=== PATIENT | male | born 1975 | race Hispanic/Latino ===

== ENCOUNTER 2019-06-15 08:05 | Outpatient (CLI) | payer OTHER ==
--- NOTE | 2019-06-15 12:38 | MRI ---
MRI RIGHT KNEE PERFORMED WITHOUT CONTRAST ENHANCEMENT: Date: 06/15/2019 HISTORY: Right knee pain after hearing a pop when putting foot down. FINDINGS: The anterior, as well as posterior cruciate ligaments are intact. The medial and lateral menisci are normal in shape and appearance. Medial and lateral collateral ligaments, and iliotibial band regions are normal. Patellar articular cartilage is intact. The medial and lateral patellar retinaculum, and quadriceps a nd patellar tendons are normal. There is very minimal patellar tendinosis noted. There are diffuse edema changes associated with the plantaris muscle and what appears to be a plantar is tendon tear. IMPRESSION: 1. No evidence of meniscal or cruciate ligament injury. 2. Edema change associated with the plantaris muscle and edema changes and tear of the plantaris ten don. POS: [facility]
== END 2019-06-15 08:06 | disposition home or self-care (01) ==
LOC: BICMRI 08:05
PROVIDERS: ATTEND Orthopaedic Surgery
DX: M23.91 Unspecified internal derangement of right knee (principal)

== ENCOUNTER 2020-05-22 08:51 | Observation (INO) | payer OTHER ==
[2020-05-22 10:20] VITALS: BMI 32.1
[2020-05-22] MEDS ORDERED: Ondansetron ODT 4 MG TAB PO PRN (10:54)
[2020-05-22] MEDS ORDERED: Acetaminophen 325 MG TAB PO PRN (10:54)
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
[2020-05-22] MEDS ORDERED: Fentanyl 100 MCG/2 ML VIAL SLOW IVP SCH (11:00)
[2020-05-22] MEDS: Gabapentin 300 MG CAP PO SCH ×3 (12:39→23:48)
[2020-05-22 13:25] LABS: Anion Gap 17 mmol/L (10-20); BUN (Urea Nitrogen) 13 mg/dL (8.9-20.6); Calc. Creatinine Clearance 252 mL/min (70-130); Calcium 8.5 mg/dL (7.8-10.44); Carbon Dioxide 22 mmol/L (22-29); Chloride 101 mmol/L (98-107); Glucose 107 mg/dL (70-105); Potassium 3.7 mmol/L (3.5-5.1); Sodium 136 mmol/L (136-145)
[2020-05-22 13:42] LABS: SARS-CoV-2 MS2 Positive; SARS-CoV-2 N Gene Negative; SARS-CoV-2 S Gene Negative; SARS-CoV-2 by NAA Not Detected (NotDetected); SARS-CoV-2 orf1ab Negative
[2020-05-22] MEDS ORDERED: Lidocaine 5% Patch TD SCH (14:00)
[2020-05-22] MEDS ORDERED: Dextrose 5% in Water 1,000 ML IV PRN (14:32)
[2020-05-22] MEDS ORDERED: Dextrose 50% Abboject 50 ML SYRINGE SLOW IVP PRN (14:32)
[2020-05-22] MEDS: Ketorolac Tromethamine 30 MG/ML VIAL IVP SCH ×3 (14:44→23:49)
[2020-05-22] MEDS ORDERED: Diazepam 5 MG TAB PO SCH (14:45)
[2020-05-22 15:46] LABS: #Basophils 0.1 thou/uL (0.0-0.2); #Eosinphils 0.1 thou/uL (0.0-0.7); #Monocytes 0.7 thou/uL (0.11-0.59); #Neutrophils 4.9 thou/uL (1.40-6.50); %Basophils 1.2 % (0.0-1.0); %Eosinophils 0.9 % (0.0-10.0); %Lymphocytes 33.8 % (21.0-51.0); %Monocytes 8.4 % (0.0-10.0); %Neutrophils 55.7 % (42.0-75.0); Hemoglobin 16.6 g/dL (14.0-18.0); Mean Corpuscular HGB CONC 34.1 g/dL (32.0-36.0); Mean Corpuscular Hemoglobin 31.8 pg (27.0-31.0); Mean Corpuscular Volume 93.5 fL (78.0-98.0); Mean Platelet Volume 8.1 fL (7.4-10.4); Platelet Count 275 thou/uL (130-400); RBC Distribution Width 11.5 % (11.5-14.5); Red Blood Cell (RBC) Count 5.22 mill/uL (4.70-6.10); White Blood Cell (WBC) Count 8.8 thou/uL (4.8-10.8)
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
--- NOTE | 2020-05-22 16:18 | MRI ---
EXAM: MRI Pelvis WO Con DATE: 05/22/2020 3:51 PM INDICATION: History of right SI joint injection one week ago with right sided low back pain radiatin g into the right leg and foot COMPARISON: None. FINDING: No abnormal fluid signal intensity seen within the SI joints. The subchondral bone plate is intact. No abnormal marrow signal intensity is seen involving the sacrum. The coccyx appears within normal limits. No free fluid is evident. No enlarged lymph nodes are demonstrated. IMPRESSION:No acute abnormality.
[2020-05-22 16:20] LABS: Hemoglobin A1c 9.2 % (4.0-6.0)
[2020-05-22] MEDS ORDERED: Melatonin 3 MG TAB PO PRN (17:25)
[2020-05-22] MEDS: metFORMIN 500 MG TAB PO SCH (17:43)
[2020-05-22] MEDS ORDERED: Ketorolac Tromethamine 30 MG/ML VIAL ONE (18:45)
[2020-05-22] MEDS: HYDROcodone/Acetaminophen 10/325 mg Tablet PO PRN (18:47)
[2020-05-22] MEDS: Methocarbamol 500 MG TAB PO SCH (20:30)
[2020-05-22] MEDS ORDERED: Atorvastatin Calcium 20 MG TAB PO SCH (21:00)
[2020-05-22] MEDS ORDERED: Lidocaine Patch Removal 1 EACH TOP SCH (21:00)
[2020-05-23] MEDS: HYDROcodone/Acetaminophen 10/325 mg Tablet PO PRN ×3 (04:45→17:53)
[2020-05-23] MEDS: Ketorolac Tromethamine 30 MG/ML VIAL IVP SCH ×2 (04:45→12:45)
[2020-05-23] MEDS: Gabapentin 300 MG CAP PO SCH ×2 (04:46→12:44)
--- NOTE | 2020-05-23 07:04 | PDOC.FM ---
- Subjective Subjective: Reports left lower back pain is significantly improved since yesterday. Continued numbness and tingling down left leg but no weakness. Denies left inner thigh numbness, urinary incontinence and fecal incontinence. - Objective MAR Reviewed: Yes Vital Signs & Weight: Vital Signs (12 hours) Temp Pulse Resp BP BP Pulse Ox 05/23/20 03:43 98.6 F 76 18 141/77 H 98 05/22/20 23:54 98.5 F 72 16 137/73 94 L 05/22/20 21:00 98.3 F 74 18 140/75 95 05/22/20 20:00 98.3 F 74 18 140/75 95 Weight Weight 113.398 kg I&O: 05/22/20 05/23/20 05/24/20 06:59 06:59 06:59 Intake Total 1480 Output Total 1500 Balance -20 Result Diagrams: 05/22/20 15:25 05/22/20 12:34 Phys Exam - Physical Examination Constitutional: NAD HEENT: moist MMs, sclera anicteric Neck: full ROM Respiratory: no wheezing, clear to auscultation bilateral Cardiovascular: RRR, no significant murmur Gastrointestinal: soft, non-tender, positive bowel sounds Musculoskeletal: no edema Left paraspinal muscular tenderness, left hip tenderness Neurological: non-focal, normal sensation, moves all 4 limbs Patellar reflex 2+ Psychiatric: normal affect, A&O x 3 Skin: no rash Dx/Plan - Plan Plan: Patient is a 44 year old male with hx of HTN, DM, HLD who was directly admitted from Dr. Darden (sports med) office for intractable pain Intractable pain 2/2 herniated disk of lumbar spine Lumbosacral radiculopathy S/p injury in 03/29/20. Treated with back brace x [address] Corbett (orthopedics). Uncontrolled pain on regimen: norco 5 Q6H, diclofenace 75mg BID, gabapentin 300mg BID. Failure L SI injection on 05/15/19. Unable to obtain MRI outpatient to r/o spinal cord compression due to pain/movement. -Admit to medicine obs -s/p fentanyl 50 with brief improvement of pain -Continue norco 10 Q6H PRN -Lidocaine 5% patch -Heating pain -Continue predisone 60mg daily started at PCP office -Continue gabapentin 600mg Q6H -Toradol 15mg Q6H -Robaxin 500mg BID -Anesthesia consulted, undergoing epidural with steroid injection this am -MRI: degenerative changes, disc bulge at L4-5, mild bilateral neural foraminal narrowing at L4-5 and L5-S1 HTN -Continue home meds HLD -Continue home med DM A1C 9.2 -Continue home meds -Mild SSI, accu checks -Will need close f/u with PCP to adjust medication regimen PCP: Dr. Darden Code: FULL DVT ppx: Lovenox 40 Dispo: Home pending adequate pain control Addendum - Attending - Attending Attestation Date/Time: 05/23/20 1121 I personally evaluated the patient and discussed the management with Dr. Lainez. I agree with the History, Examination, Assessment and Plan documented above with any addition or exceptions noted below.
[2020-05-23] MEDS ORDERED: predniSONE 20 MG TAB PO SCH ×2 (08:00)
[2020-05-23] MEDS ORDERED: Aspirin 81 mg Enteric Coated Tablet PO SCH (09:00)
[2020-05-23] MEDS ORDERED: Losartan 25 MG TAB PO SCH (09:00)
[2020-05-23] MEDS ORDERED: Lidocaine 5% Patch TD SCH (09:00)
[2020-05-23] MEDS ORDERED: Enoxaparin Sodium 40 MG/0.4 ML SYRINGE SC SCH (09:00)
[2020-05-23] MEDS ORDERED: Empagliflozin 25 MG TAB PO SCH (09:00)
[2020-05-23] MEDS: metFORMIN 500 MG TAB PO SCH ×2 (09:33→17:10)
[2020-05-23] MEDS: Methocarbamol 500 MG TAB PO SCH (09:34)
[2020-05-23] MEDS ORDERED: FLU VACC QS2020-21(6MOS UP)/PF 60 MCG/0.5 ML SYRINGE IM ONE (10:45)
[2020-05-23] MEDS ORDERED: Prevnar 13-Val Conj/PF 0.5 ML SYRINGE IM ONE (10:45)
[2020-05-23] MEDS: HumaLOG 300 UNITS/3 ML VIAL SC PRN ×2 (12:46→17:11)
[2020-05-23 12:57] VITALS: TEMP 98.4
[2020-05-23] MEDS ORDERED: Ibuprofen 800 MG TAB PO SCH (17:00)
[2020-05-23] MEDS ORDERED: Methocarbamol 500 MG TAB PO SCH (17:00)
[2020-05-23] MEDS ORDERED: Gabapentin 400 MG CAP PO SCH (17:00)
[2020-05-23 19:34] VITALS: BP 146/89
== END 2020-05-23 18:31 | disposition home or self-care (01) ==
LOC: SURG B 08:51
PROVIDERS: ADMIT Family Medicine; ATTEND Family Medicine
DX: M51.17 Intervertebral disc disorders with radiculopathy, lumbosacral region (principal); I10 Essential (primary) hypertension; E11.9 Type 2 diabetes mellitus without complications; E78.5 Hyperlipidemia, unspecified; Z79.82 Long term (current) use of aspirin; Z79.84 Long term (current) use of oral hypoglycemic drugs; Z79.899 Other long term (current) drug therapy; Z87.891 Personal history of nicotine dependence; Z88.8 Allergy status to other drugs, medicaments and biological substances; Z20.822 Contact with and (suspected) exposure to COVID-19
CPT/HCPCS: 36415; 36416; 72148; 72195; 80048; 83036; 85025; 87635; 96372; 96374; 96375; 96376; G0378; J1650; J1885; J3010; J7512; U0003; U0005

== ENCOUNTER 2020-05-29 12:59 | Emergency (ER) | payer OTHER ==
[2020-05-29] MEDS ORDERED: Ketorolac Tromethamine 30 MG/ML VIAL ONE ×2 (14:04→14:05)
--- NOTE | 2020-05-29 14:04 | CT ---
Exam: CT lumbar spine without contrast HISTORY: Intractable back pain. Disc herniation. Patient has undergone epidural steroid injection. Comparison none FINDINGS: No abnormal attenuation the visualized solid organs, paraspinal muscles or alimentary canal. Sacroiliac joints are patent and symmetric. Sacral ala are preserved. There is trabecular thickening, cortical thickening, bony expansion associated with a sclerotic focus involving the left iliac bone, compatible with Paget's disease. There are no pathologic fractures and the visualized bony pelv is Lumbar spine vertebral body heights are maintained. There is no lumbar spine fracture. There is a rig ht pars defect at L5 without associated spondylolisthesis. There is straightening of normal lumbar lordosis Limited evaluation the contents of the central spinal canal and neural foramina due to technique Throughout the lumbar spine, there is no significant central canal stenosis. There is mass effect upo n the ventral epidural fat at L4-L5. Disc material contacts but does not obscure either traversing L5 nerve root. There is a broad-based disc bulge at L5-S1. Disc material contacts the ventral epidura l fat. Disc material contacts without obscure either traversing S1 nerve root. Mild bilateral neural foraminal narrowing at L4-L5. Mild to moderate bilateral neural foraminal narrowing at L5-S1. IMPRESSION: 1. No lumbar spine fracture. 2. Spondylolysis at L5-S1, involving the right pars. No associated spondylolisthesis. 3. No significant central canal stenosis. Bilateral neural foraminal narrowing at L4-L5 and L5-S1 as described above. Transcribed Date/Time: 05/29/2020 2:12 PM
[2020-05-29 14:32] LABS: #Basophils 0.1 thou/uL (0.0-0.2); #Eosinphils 0.1 thou/uL (0.0-0.7); #Lymphocytes 2.4 thou/uL (1.20-3.40); #Monocytes 0.8 thou/uL (0.11-0.59); #Neutrophils 7.2 thou/uL (1.40-6.50); %Basophils 0.6 % (0.0-1.0); %Eosinophils 0.7 % (0.0-10.0); %Lymphocytes 22.7 % (21.0-51.0); Hemoglobin 18.4 g/dL (14.0-18.0); Mean Corpuscular HGB CONC 33.8 g/dL (32.0-36.0); Mean Corpuscular Hemoglobin 31.6 pg (27.0-31.0); Mean Corpuscular Volume 93.5 fL (78.0-98.0); Mean Platelet Volume 7.9 fL (7.4-10.4); Platelet Count 259 thou/uL (130-400); RBC Distribution Width 11.8 % (11.5-14.5); Red Blood Cell (RBC) Count 5.81 mill/uL (4.70-6.10); White Blood Cell (WBC) Count 10.5 thou/uL (4.8-10.8)
[2020-05-29 14:49] LABS: ALT (SGPT) 37 U/L (8-55); AST (SGOT) 19 U/L (5-34); Albumin 4.3 g/dL (3.5-5.0); Alkaline Phosphatase 91 U/L (40-110); Anion Gap 16 mmol/L (10-20); BUN (Urea Nitrogen) 13 mg/dL (8.9-20.6); Bilirubin, Total 0.6 mg/dL (0.2-1.2); Calc. Creatinine Clearance 0 mL/min (70-130); Calcium 8.5 mg/dL (7.8-10.44); Carbon Dioxide 20 mmol/L (22-29); Chloride 106 mmol/L (98-107); Globulin 2.6 g/dL (2.4-3.5); Glucose 149 mg/dL (70-105); Protein, Total 6.9 g/dL (6.0-8.3); Sodium 138 mmol/L (136-145)
== END 2020-05-29 15:20 | disposition home or self-care (01) ==
LOC: ERS 12:59
DX: M54.5 Low back pain (principal); Z79.899 Other long term (current) drug therapy; Z79.84 Long term (current) use of oral hypoglycemic drugs; Z79.82 Long term (current) use of aspirin; E11.9 Type 2 diabetes mellitus without complications; E78.5 Hyperlipidemia, unspecified; E78.00 Pure hypercholesterolemia, unspecified; I10 Essential (primary) hypertension
CPT/HCPCS: 36415; 72131; 80053; 85025; 85652; 86140; J1885

== ENCOUNTER 2020-06-03 17:41 | Inpatient (IN) | payer OTHER ==
[~2020-06-03 17:41] MED LIST: Iopamidol-370 76% 500 ML 1 ML ONE
[2020-06-03] MEDS ORDERED: Ondansetron PF 4 MG/2 ML Vial ONE (18:03)
[2020-06-03 18:52] LABS: ALT (SGPT) 52 U/L (8-55); AST (SGOT) 36 U/L (5-34); Albumin 4.4 g/dL (3.5-5.0); Alkaline Phosphatase 103 U/L (40-110); BUN (Urea Nitrogen) 33 mg/dL (8.9-20.6); Bilirubin, Total 0.6 mg/dL (0.2-1.2); Calc. Creatinine Clearance 0 mL/min (70-130); Calcium 9.4 mg/dL (7.8-10.44); Carbon Dioxide Less than 8 mmol/L (22-29); Chloride 92 mmol/L (98-107); Glucose 608 mg/dL (70-105); Magnesium 3.1 mg/dL (1.6-2.6); Phosphorus 9.9 mg/dL (2.3-4.7); Potassium 4.7 mmol/L (3.5-5.1); Protein, Total 8.4 g/dL (6.0-8.3); Sodium 129 mmol/L (136-145)
[2020-06-03] MEDS ORDERED: Ketorolac Tromethamine 30 MG/ML VIAL ONE (19:04)
[2020-06-03] MEDS ORDERED: Morphine 4 MG/ML VIAL ONE ×2 (19:04→19:19)
[2020-06-03 19:18] LABS: Analyzer IN Cardio ER; Base Excess -29.1 mEq/L (-2.0 to +3.0); Calcium, Ionized (venous) 1.28 mmol/L (1.16-1.32); Chloride (VBG) 93 mmol/L (98-106); Hemoglobin (Hb) 20.4 g/dL (13.1-17.2); Potassium (VBG) 4.43 mmol/L (3.70-5.30); Sodium 131.9 mmol/L (133-146)
[2020-06-03 19:30] LABS: Hemoglobin 17.3 g/dL (14.0-18.0); Mean Corpuscular HGB CONC 33.1 g/dL (32.0-36.0); Mean Corpuscular Volume 96.7 fL (78.0-98.0); Mean Platelet Volume 8.5 fL (7.4-10.4); Platelet Count 309 thou/uL (130-400); RBC Distribution Width 11.8 % (11.5-14.5); Red Blood Cell (RBC) Count 5.39 mill/uL (4.70-6.10); White Blood Cell (WBC) Count 27.6 thou/uL (4.8-10.8)
[2020-06-03 19:39] LABS: Actual Bicarbonate (HCO3v) 5 mEq/L (22-28); pH (venous) 6.83 (7.32-7.43)
[2020-06-03] MEDS ORDERED: INSULIN REGULAR IN 0.9 % NACL 100 UNIT/100 ML BAG ONE (19:39)
[2020-06-03 19:42] LABS: Band 11 % (5-11); MDiff Complete? YES; Metamyelocyte 1 % (0-0); Monocytes 10 % (0-10); Neutrophil 78 % (42-75); Platelet Morphology Comment Appears Adequate; RBC Morphology Normal
[2020-06-03] MEDS ORDERED: Piperacillin/Tazobactam 4.5 GM VIAL ONE (20:32)
[2020-06-03] MEDS ORDERED: Vancomycin 1 GM/200 ML BAG ONE (20:32)
--- NOTE | 2020-06-03 21:01 | RAD ---
PORTABLE CHEST: History: Sepsis FINDINGS: Lungs show no focal infiltrate or consolidation. No significant effusion. Heart and mediastinum unrem arkable. IMPRESSION: No acute process identified. POS: [facility]
[2020-06-03 21:22] LABS: Lactic Acid 3.3 mmol/L (0.5-2.2)
[2020-06-03 22:03] LABS: Bacteria/HPF None Seen HPF (None Seen); Bilirubin Negative (Negative); Blood, Urine 1+ (Negative); Clarity Clear (Clear); Glucose, Urine (Dipstick) Greater than 1000 mg/dL (Negative); Ketone, Urine 100 mg/dL (Negative); Leukocyte Negative Leu/uL (Negative); Mucous/LPF Rare LPF (<2+); Nitrite Negative (Negative); Protein, Urine (Dipstick) 30 mg/dL (Neg-Trace); RBC/HPF 0-3 HPF (0-3); Specific Gravity, Urine 1.022 (1.002-1.036); Squamous Epithelial None Seen HPF (0-3); Urobilinogen Normal mg/dL (Less than 2); WBC/HPF 0-3 HPF (0-3); pH, Urine 5.5 (5.0-9.0)
[2020-06-03] MEDS ORDERED: Ondansetron PF 4 MG/2 ML Vial IVP PRN (23:02)
[2020-06-03] MEDS ORDERED: Guaifenesin DM 100-10/5 ML UDCUP PO PRN (23:02)
[2020-06-03] MEDS ORDERED: Acetaminophen 325 MG TAB PO PRN (23:02)
[2020-06-03] MEDS ORDERED: Promethazine HCl 12.5 MG in Sodium Chloride 0.9% 50 ML IVPB PRN (23:02)
[2020-06-03] MEDS ORDERED: hydrALAZINE 20 MG/ML VIAL SLOW IVP PRN (23:02)
[2020-06-03] MEDS ORDERED: Labetalol HCl 100 MG/20 ML VIAL SLOW IVP PRN (23:02)
[2020-06-03] MEDS ORDERED: cloNIDine 0.1 MG TAB PO PRN (23:02)
[2020-06-03] MEDS ORDERED: Dextrose 5 %-0.45 % NaCl 1,000 ML IV PRN (23:04)
[2020-06-03] MEDS ORDERED: Sodium Chloride 0.9% 1,000 ML IV PRN ×4 (23:04)
[2020-06-03] MEDS ORDERED: Electrolyte Replacement Protocol 1 EACH IVPB ONE (23:04)
[2020-06-03] MEDS ORDERED: NS 0.9% w/ 20 MEQ KCL 1,000 ML IV PRN ×2 (23:04)
--- NOTE | 2020-06-03 23:08 | PDOC.HHP ---
Hospitalist HPI - History of Present Illness Weakness History of Present Illness: Patient is a 45 year old male with PMH bulging disc in back, diabetes, Type II, hyperlipidemia, hypertension who presents to ED for vomiting, weakness, dizziness, hyperglycemia. He has recently been having epidural injections in back, last one was 2 weeks ago for DJD, no isses with site and no problems in weeks after injection, he has recent diabetes medication change. He took a day of steroids but has not been on prolonged steroid therapy. In ED, WBC 27, plt 309, lactate 8->3, co2 less than 8, po4 9.9, glucose 400, na 129, ua w/o UTI, vitals w/ hypothermia, tachycardia, hypotension, tachypnea. Labs overall concerning for DKA and possible sepsis. Hospitalist ROS - Review of Systems Constitutional: reports: chills, weakness, malaise Eyes: denies: pain, vision change, conjunctivae inflammation, eyelid inflammation, redness, other ENT: denies: ear pain, ear discharge, nose pain, nose discharge, nose congestion, mouth pain, mouth swelling, throat pain, throat swelling, other Respiratory: denies: cough, dry, shortness of breath, hemoptysis, SOB with excertion, pleuritic pain, sputum, wheezing, other Cardiovascular: denies: chest pain, palpitations, orthopnea, paroxysmal noc. dyspnea, edema, light headedness, other Gastrointestinal: reports: nausea, vomiting. denies: abdominal pain, diarrhea, constipation, melena, hematochezia, other Genitourinary: denies: dysuria, frequency, incontinence, hematuria, retention, other Musculoskeletal: denies: neck pain, shoulder pain, arm pain, back pain, hand pain, leg pain, foot pain, other Skin: denies: rash, lesions, tatiana, bruising, other Neurological: denies: weakness, numbness, incoordination, change in speech, confusion, seizures, other All other systems reviewed; all pertinent +/- noted in HPI/Subj - Medication Medications: Ozempic pen injector : Strength - 0.25 mg or 0.5 mg dose (2 mg/1.5 mL) : [1.5 mL(s)] : SUBCUTANEOUS Patient Dose: UNK mg Subcutaneous once a week. metFORMIN tablet : Strength - 1,000 mg : ORAL Patient Dose: UNK mg Oral once a day. Jardiance tablet : Strength - 10 mg : ORAL Patient Dose: UNK mg Oral once a day. simvastatin tablet : Strength - 20 mg : ORAL Patient Dose: UNK mg Oral once a day. olmesartan tablet : Strength - 20 mg : ORAL Patient Dose: 20 mg Oral once a day. Aspir-81 tablet,delayed release (DR/EC) : Strength - 81 mg : ORAL Patient Dose: 81 mg Oral once a day. pantoprazole oral tablet,delayed release (DR/EC) : Strength - 20 mg : ORAL Patient Dose: 40 mg Oral once a day. gabapentin capsule : Strength - 300 mg : ORAL Patient Dose: 300 mg Oral 2 times a day. methocarbamol oral tablet : Strength - 500 mg : ORAL Patient Dose: 500 mg Oral 2 times a day. Miralax 17 gram/dose : Strength - powder : ORAL Patient Dose: 1 units Oral 2 times a day. Hospitalist History - Past Medical History Other Medical History: Past medical history includes musculoskeletal disorder, bulging disc in back, diabetes, Type II, hyperlipidemia, hypertension - Past Surgical History Other Surgical History: Surgical history of orthopedic surgery, LEFT SHOULDER, LEFT LEG AND BROKEN JAW REPAIR (8 YRS OLD), LEFT ELBOW SURGERY AT AGE 8. - Family History Family History: reports: no pertinent history - Social History Smoking Status: Former smoker Alcohol: reports: Rare Drugs: reports: none - Exam General Appearance: NAD, awake alert Eye: PERRL, anicteric sclera ENT: normocephalic atraumatic, no oropharyngeal lesions, moist mucosa Neck: supple, symmetric, no JVD, no thyromegaly, no lymphadenopathy, no carotid bruit Heart: no murmur, no gallops, no rubs, normal peripheral pulses Heart - other findings: tachycardia Respiratory: CTAB, no wheezes, no rales, no ronchi, normal chest expansion, no tachypnea, normal percussion Gastrointestinal: soft, non-tender, non-distended, normal bowel sounds, no palpable masses, no hepatomegaly, no splenomegaly, no bruit Extremities: no cyanosis, no clubbing, no edema Skin: normal turgor, no lesions, no rashes Neurological: cranial nerve grossly intact, normal sensation to touch, no weakne ss, no focal deficits, no new deficit Musculoskeletal: normal tone, normal strength, no muscle wasting Psychiatric: normal affect, normal behavior, A&O x 3 Hospitalist Results - Labs Result Diagrams: 06/03/20 19:15 06/03/20 17:58 Lab results: WBC 27.6 thou/uL (4.8-10.8) H 06/03/20 19:15 Hgb 17.3 g/dL (14.0-18.0) 06/03/20 19:15 Hct 52.1 % (42.0-52.0) H 06/03/20 19:15 MCV 96.7 fL (78.0-98.0) 06/03/20 19:15 Plt Count 309 thou/uL (130-400) 06/03/20 19:15 Band Neuts % (Manual) 11 % (5-11) 06/03/20 19:15 VBG pH 6.83 (7.32-7.43) L* 06/03/20 18:37 VBG pCO2 31.0 mmHg (42.0-51.0) L 06/03/20 18:37 VBG pO2 35.8 mmHg (35.0-45.0) 06/03/20 18:37 Sodium 129 mmol/L (136-145) L 06/03/20 17:58 Potassium 4.7 mmol/L (3.5-5.1) 06/03/20 17:58 Chloride 92 mmol/L (98-107) L 06/03/20 17:58 Carbon Dioxide Less than 8 mmol/L (22-29) L* 06/03/20 17:58 BUN 33 mg/dL (8.9-20.6) H 06/03/20 17:58 Creatinine 2.15 mg/dL (0.7-1.3) H 06/03/20 17:58 Glucose 608 mg/dL (70-105) H* 06/03/20 17:58 Lactic Acid 3.3 mmol/L (0.5-2.2) H 06/03/20 20:51 Calcium 9.4 mg/dL (7.8-10.44) 06/03/20 17:58 Total Bilirubin 0.6 mg/dL (0.2-1.2) 06/03/20 17:58 AST 36 U/L (5-34) H 06/03/20 17:58 ALT 52 U/L (8-55) 06/03/20 17:58 Alkaline Phosphatase 103 U/L (40-110) 06/03/20 17:58 Troponin I 0.014 ng/mL (< 0.028) 06/03/20 17:58 Serum Total Protein 8.4 g/dL (6.0-8.3) H 06/03/20 17:58 Albumin 4.4 g/dL (3.5-5.0) 06/03/20 17:58 Urine Ketones 100 mg/dL (Negative) A 06/03/20 21:10 Urine Blood 1+ (Negative) A 06/03/20 21:10 Urine Nitrite Negative (Negative) 06/03/20 21:10 Ur Leukocyte Esterase Negative Padma/uL (Negative) 06/03/20 21:10 Urine RBC 0-3 HPF (0-3) 06/03/20 21:10 Urine WBC 0-3 HPF (0-3) 06/03/20 21:10 Ur Squamous Epith Cells None Seen HPF (0-3) 06/03/20 21:10 Urine Bacteria None Seen HPF (None Seen) 06/03/20 21:10 Additional comment: VITAL SIGNS WedJun 03, 2020 22:18 BOWEN De Santiago, Padma BP: 110/62 Pulse: 116 Resp: 27 O2 sat: 100 on (Room Air) Time: 06/03/2020 22:18. Hospitalist H&P A/P - Plan Plan: 45 year old male with PMH T2DM, chronic disk herniation and pain who presents to ED for DKA. # DKA # severe sepsis # hypothermia # acute kidney injury # hyponatremia - admit to IMCU - DKA protocol, insulin drip - empiric ABX - not long enough on steroids to need stress dosing now - consult critical care meds - trend electrolytes - CT A/P, consider MRI back if sepsis persists given recent epidural 2 weeks ago. not clinically really suspecting epidural infection though, but something to keep in mind DVT/GI ppx full code
[2020-06-03] MEDS ORDERED: HUMULIN R 100 UNITS in Sodium Chloride 0.9% 100 ML IVPB SCH (23:15)
[2020-06-03] MEDS ORDERED: Electrolyte Replacement Protocol 1 EACH FS PRN (23:15)
[2020-06-03] MEDS ORDERED: Hydrocortisone Sod Succ/PF 100 mg/2 ml Vial IVP SCH (23:30)
[2020-06-03 23:38] LABS: BUN (Urea Nitrogen) 34 mg/dL (8.9-20.6); Calc. Creatinine Clearance 0 mL/min (70-130); Calcium 8.1 mg/dL (7.8-10.44); Chloride 96 mmol/L (98-107); Glucose 520 mg/dL (70-105); Potassium 4.1 mmol/L (3.5-5.1); Sodium 127 mmol/L (136-145)
[2020-06-03 23:40] LABS: Carbon Dioxide Less than 8 mmol/L (22-29)
[2020-06-04 00:43] VITALS: BMI 31.0
[2020-06-04 01:03] LABS: SARS-CoV-2 NAA Rapid Test Not Detected (NotDetected)
[2020-06-04] MEDS: HYDROcodone/Acetaminophen 5/325 mg Tablet PO PRN (01:41)
[2020-06-04] MEDS: Morphine 2 MG/ML VIAL SLOW IVP PRN ×2 (02:36→13:08)
[2020-06-04] MEDS: Piperacillin/Tazobactam 3.375 GM in Sodium Chloride 0.9% 100 ML IVPB SCH ×4 (03:44→21:05)
[2020-06-04 03:58] LABS: #Lymphocytes 1.5 thou/uL (1.20-3.40); #Monocytes 1.7 thou/uL (0.11-0.59); #Neutrophils 13.6 thou/uL (1.40-6.50); %Basophils 0.2 % (0.0-1.0); %Eosinophils 0.3 % (0.0-10.0); %Lymphocytes 8.8 % (21.0-51.0); %Monocytes 10.1 % (0.0-10.0); %Neutrophils 80.6 % (42.0-75.0); Hemoglobin 15.8 g/dL (14.0-18.0); Mean Corpuscular HGB CONC 36.2 g/dL (32.0-36.0); Mean Corpuscular Hemoglobin 32.9 pg (27.0-31.0); Mean Corpuscular Volume 90.9 fL (78.0-98.0); Mean Platelet Volume 8.3 fL (7.4-10.4); Platelet Count 253 thou/uL (130-400); RBC Distribution Width 11.6 % (11.5-14.5); Red Blood Cell (RBC) Count 4.79 mill/uL (4.70-6.10); White Blood Cell (WBC) Count 16.9 thou/uL (4.8-10.8)
[2020-06-04] MEDS: D5 1/2 NS w/20 mEq KCL 1,000 ML IV PRN ×3 (03:59→11:39)
[2020-06-04 04:17] LABS: Anion Gap 16 mmol/L (10-20); BUN (Urea Nitrogen) 27 mg/dL (8.9-20.6); BUN (Urea Nitrogen) 28 mg/dL (8.9-20.6); Calc. Creatinine Clearance 137 mL/min (70-130); Calc. Creatinine Clearance 138 mL/min (70-130); Calcium 8.1 mg/dL (7.8-10.44); Carbon Dioxide 12 mmol/L (22-29); Chloride 105 mmol/L (98-107); Glucose 134 mg/dL (70-105); Glucose 135 mg/dL (70-105); Potassium 3.7 mmol/L (3.5-5.1); Potassium 3.8 mmol/L (3.5-5.1); Sodium 129 mmol/L (136-145)
[2020-06-04] MEDS ORDERED: Hydrocortisone Sod Succ/PF 100 mg/2 ml Vial IVP SCH (06:00)
[2020-06-04] MEDS ORDERED: VANCOMYCIN 1.25 GM/250 ML BAG 1.25 GM in Premix Bag 1 BAG IVPB SCH (06:00)
[2020-06-04] MEDS: traMADol HCl 50 MG TAB PO PRN ×2 (06:12→17:15)
[2020-06-04] MEDS ORDERED: Magnesium 2 GM/50 ML 2 GM in Premix Bag 1 BAG IVPB SCH (06:30)
[2020-06-04] MEDS: Aspirin 81 mg Enteric Coated Tablet PO SCH (07:52)
[2020-06-04] MEDS: Gabapentin 300 MG CAP PO SCH ×3 (07:53→21:03)
[2020-06-04 08:26] LABS: Anion Gap 13 mmol/L (10-20); BUN (Urea Nitrogen) 19 mg/dL (8.9-20.6); Calc. Creatinine Clearance 164 mL/min (70-130); Carbon Dioxide 14 mmol/L (22-29); Chloride 106 mmol/L (98-107); Glucose 177 mg/dL (70-105); Potassium 3.7 mmol/L (3.5-5.1); Sodium 129 mmol/L (136-145)
--- NOTE | 2020-06-04 08:28 | CT ---
PRELIMINARY REPORT/[facility]/EMERGENCY AFTER HOURS PROCEDURE CT abdomen and pelvis with contrast: Comparison: None Findings: No significant abnormality in the lung bases. Cholelithiasis. No cholecystitis or biliary obstruction. No hydronephrosis or symptomatic urinary calculus. Diffuse fatty infiltration of the liver. Wall thickening of the distal esophagus. No bowel obstruction, free fluid, free air, abscess or diverticulitis. Normal appendix. The reproductive organs and urinary bladder are unremarkable. Sclerosis and mild expansion of the left posterior iliac wing. Impression: Possible mild distal esophagitis which may be infectious, inflammatory or malignant. No other acute a bnormality or definite cause for symptoms identified. Sclerosis and expansion of the posterior left iliac wing. No surrounding Survey reaction or soft tissue mass. This may be fibrous dysplasia. Bone scan could be considered to evaluate for any risk of malignancy. ELECTRONICALLY SIGNED BY: Jef Gutiérrez MD Jun 04, 2020 2:48:12 AM SAND WORKER This report is intended for review by the ordering physician only, in accordance of law. If you recei ve this report in error, please call [facility] at [phone]. FINAL REPORT Emergent after hours CT abdomen and pelvis with IV contrast HISTORY: Diabetic ketoacidosis with critical life-threatening pH. Tachycardia and tachypnea. Hypother amy. COMPARISON: MRI pelvis on 05/22/2020 IMPRESSION: 1. Thickening of the visualized distal esophagus. This could be infectious or inflammatory in etiolog y. Neoplastic process cannot be excluded. Direct visualization may be helpful for further evaluation. 2. Mild fatty infiltration liver. 3. Approximately 10 mm increased density exophytic lesion inferior pole right kidney which is difficu lt to further characterize on this exam due to small size. Follow-up CT exam with and without IV contrast is recommended for further attempt at characterization. This finding was discussed with Kaleb perez, CCU nurse in charge of patient's hospital care on 06/04/2020 at 0826 hours. 4. Sclerotic lesion involving the left iliac bone with cortical thickening and trabecular thickening and mild expansion of the ileum in this region. This corresponds with abnormality seen on MRI of the pelvis on 05/22/2020 with differential considerations suggestive of Paget's disease or possibly fi bro-osseous lesion such as focal fibrous dysplasia. Please see MRI report for recommendations which were made on that examination. Agree with preliminary report by [facility]. Transcribed Date/Time: 06/04/2020 10:51 AM
[2020-06-04] MEDS ORDERED: Famotidine 20 MG TAB PO SCH ×2 (09:00)
--- NOTE | 2020-06-04 10:36 | CON ---
DATE OF CONSULTATION: HISTORY OF PRESENT ILLNESS: Eric Newman is a 45-year-old diabetic gentleman who apparently appears stop taking his medication. He is having some intractable back pain, nausea, and vomiting. He came into the hospital with severe metabolic acidosis, elevated blood sugar, heart rate of 125. He is seeing some back physician for chronic back pain. He had a CT of his abdomen which shows what appears to be evidence of a disk problem. This morning, he is awake, responsive, still complaining of pain, slightly nauseated. He denies any tobacco abuse. PAST MEDICAL HISTORY: Uncontrolled diabetes, chronic pain syndrome. PREVIOUS SURGERIES: Left shoulder surgery, elbow surgery, jaw surgery. SOCIAL HISTORY: Drinks occasionally. Quit smoking 10 years ago. HOME MEDICATIONS: Presumably includes: 1. Zofran. 2. Pamelor 25. 3. Ibuprofen. 4. Hydrocodone. 5. Gabapentin. 6. Ozempic. 7. Benicar 20. 8. Aspirin. 9. Metformin 1000 b.i.d. 10. Simvastatin 40. 11. Jardiance 25. He is now on insulin drip. ALLERGIES: LISINOPRIL. REVIEW OF SYSTEMS: Ten-point negative. PHYSICAL EXAMINATION: GENERAL: He is awake, alert, responsive. VITAL SIGNS: Sats are 90% on room air. Blood pressure 102/70, pulse rate 18. CHEST: No wheezing. No crackles. CARDIAC: Normal S1, S2. No masses. LABORATORY DATA: Pertinent for sodium of 129, bicarb of 14, white count of 16,000. Chest x-ray was normal. 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 IMPRESSION: 1. Chronic back syndrome. 2. Uncontrolled diabetes. PLAN: Pulmonary vásquez, we will follow while in the ICU. He is on insulin drip. Once his acidosis improves, switch him over to home medication. Consultation note, 70 minutes, 50% in direct patient care. Job ID: [id number]
[2020-06-04] MEDS: VANCOMYCIN 1.25 GM/250 ML BAG 1.25 GM in Premix Bag 1 BAG IVPB SCH ×2 (11:37→21:50)
[2020-06-04] MEDS: Lidocaine 5% Patch TD SCH (11:38)
[2020-06-04] MEDS: HYDROcodone/Acetaminophen 10/325 mg Tablet PO PRN ×2 (11:38→19:44)
--- NOTE | 2020-06-04 12:41 | PDOC.FM ---
- Subjective Subjective: Pt is complaining of left leg pain that is shooting in nature. He says his pain is an 8/10 and gabapentin helps. He had a epidural on 05/24 and had 24 hours of relief. He had an MRI earlier this month that showed a spot in the ileum concerning for paget's disease and an L5-S1 disc herniation. He had a nerve study on 06/03 that showed some axonal slowing more consistent with neuropathy from DM. He does not check his blood sugars at home. He says his A1C was 9.5% last month. He started Ozempic 2 Sundays ago, but he has been on the other medications for awhile. He was on Nortryptline but discontinued it due to dizziness. Discussed case with Dr. Darden who is working up his paget's disease. He has ordered a bone scan and urine hydroxyproline and discussed possibly getting it while he is here. - Objective MAR Reviewed: Yes Vital Signs & Weight: Vital Signs (12 hours) Temp Pulse Pulse Pulse BP BP BP 06/04/20 09:11 107 H 104 H 103 H 96/70 102/65 123/72 06/04/20 09:00 97.7 F 06/04/20 08:55 108 H 100 96/70 123/72 06/04/20 07:17 06/04/20 04:00 98.1 F Pulse Ox Pulse Ox Pulse Ox Pulse Ox 06/04/20 09:11 97 98 98 06/04/20 09:00 06/04/20 08:55 98 93 L 06/04/20 07:17 98 06/04/20 04:00 Weight Weight 106.6 kg Most Recent Monitor Data Heart Rate from ECG 94 NIBP 109/71 NIBP BP-Mean 83 Respiration from ECG 11 SpO2 99 I&O: 06/03/20 06/04/20 06/05/20 06:59 06:59 06:59 Intake Total 1784.3 500 Output Total 2049 2500 Balance -265.7 -1999 Result Diagrams: 06/04/20 03:31 06/04/20 07:37 Phys Exam - Physical Examination pt is uncomfortable HEENT: moist MMs Neck: no nodes Respiratory: no wheezing, clear to auscultation bilateral Cardiovascular: RRR, no significant murmur Gastrointestinal: soft, non-tender, positive bowel sounds Musculoskeletal: no edema, pulses present Neurological: normal sensation, moves all 4 limbs Lymphatic: no nodes Psychiatric: normal affect Skin: normal turgor Deviation from normal: tinea versicolor on back Dx/Plan (1) DKA (diabetic ketoacidoses) Code(s): E11.10 - TYPE 2 DIABETES MELLITUS WITH KETOACIDOSIS WITHOUT COMA Status: Acute (2) Sepsis Code(s): A41.9 - SEPSIS, UNSPECIFIED ORGANISM Status: Acute (3) SVETLANA (acute kidney injury) Code(s): N17.9 - ACUTE KIDNEY FAILURE, UNSPECIFIED Status: Acute (4) Diabetes mellitus Code(s): E11.9 - TYPE 2 DIABETES MELLITUS WITHOUT COMPLICATIONS Status: Acute (5) HTN (hypertension) Code(s): I10 - ESSENTIAL (PRIMARY) HYPERTENSION Status: Acute (6) HLD (hyperlipidemia) Code(s): E78.5 - HYPERLIPIDEMIA, UNSPECIFIED Status: Acute (7) DJD (degenerative joint disease) Code(s): M19.90 - UNSPECIFIED OSTEOARTHRITIS, UNSPECIFIED SITE Status: Acute (8) Bulging disc Code(s): TES4358 - Status: Acute - Plan Plan: Pt is a 45 yo M with pmh of DMII, HTN, HLD, DJD, and hx of bulging disc disease who presents for weakness. 1. DKA BHB: 0.12 -Pt already on protocol with fluids, insulin, and electrolytes protocol as needed -Will transition to subq insulin soon 2. Sepsis LA: 8 > 3, WBC: 27 > 16 -Meds: Vanc, Zosyn -Will await blood cultures -Will trend labs 3. SVETLANA, Resolved Cre: 2.15 > 0.86 4. DMII Home Meds: Metformin, Empagliflozin, Semaglutide -ACHS insulin checks, SSI 5. HTN Home Meds: Olmesartan 6. HLD Home Meds: Simvastatin 7. DJD -MD aware 8. Hx of Bulging Disc Home Meds: Gabapentin, Nortriptyline 9. Concern for Paget's Disease MRI showed a spot on L iliac, which was reiterated on CT -Alk phos and calcium normal -Will get Vit D today -Consider getting urine hydroxyproline and Bone Scan if able 10. R Renal Mass 10 mm exophytic lesion found on CT, recommended repeat CT w/ & w/o contrast Diet: NPO, will transition after subq insulin administered DVT PPx: Lovenox GI PPx: Protonix Code Status: Full PCP: Dr. Shayy Edwards Endo: Dr. Gardner Sports Med: Dr. Darden Dispo: ICU inpt will transfer to floor today if stable. Addendum - Attending - Attending Attestation Date/Time: 06/04/20 3743 I personally evaluated the patient and discussed the management with Dr. Fragoso. I agree with the History, Examination, Assessment and Plan documented above with any addition or exceptions noted below. Admitted to hospitalist group overnight and transferred to our service today. was well into the DKA protocol at the time of my exam and AG was closing. Concern for compliance with DM medications at home. GBS positive UTI. Multiple recent steroid injections/bust doses. All of these likely contributed to his recurrent DKA. Continue DKA protocol until anion gap is closed then transition to home subcutaneous insulin.we will attempt to continue evaluation for Paget's disease of the bone if insurance will allow bone scan. Evaluating for additional infectious sources. Pro-calcitonin pending.
[2020-06-04 15:27] LABS: Lactic Acid 0.8 mmol/L (0.5-2.2)
[2020-06-04] MEDS ORDERED: Dextrose 50% Abboject 50 ML SYRINGE SLOW IVP PRN (17:04)
[2020-06-04] MEDS ORDERED: HumaLOG 300 UNITS/3 ML VIAL SC PRN ×2 (17:04)
[2020-06-04] MEDS ORDERED: Dextrose 5% in Water 1,000 ML IV PRN (17:04)
[2020-06-04] MEDS ORDERED: Insulin Glargine 10 UNITS in Pre-Filled Syringe 1 EACH SC SCH (17:15)
[2020-06-04] MEDS ORDERED: HumaLOG 300 UNITS/3 ML VIAL SC SCH (17:15)
[2020-06-04] MEDS: Atorvastatin Calcium 20 MG TAB PO SCH (21:04)
[2020-06-04] MEDS: Enoxaparin Sodium 40 MG/0.4 ML SYRINGE SC SCH (21:05)
[2020-06-04] MEDS: Transdermal Patch Removal TOP SCH (21:07)
[2020-06-05] MEDS: HYDROcodone/Acetaminophen 5/325 mg Tablet PO PRN (00:29)
[2020-06-05] MEDS: Piperacillin/Tazobactam 3.375 GM in Sodium Chloride 0.9% 100 ML IVPB SCH ×2 (03:55→09:13)
[2020-06-05 04:36] LABS: #Basophils 0.1 thou/uL (0.0-0.2); #Lymphocytes 1.8 thou/uL (1.20-3.40); #Neutrophils 6.1 thou/uL (1.40-6.50); %Basophils 0.7 % (0.0-1.0); %Eosinophils 0.3 % (0.0-10.0); %Lymphocytes 20.4 % (21.0-51.0); %Monocytes 10.6 % (0.0-10.0); Hemoglobin 14.2 g/dL (14.0-18.0); Mean Corpuscular HGB CONC 35.2 g/dL (32.0-36.0); Mean Corpuscular Hemoglobin 32.1 pg (27.0-31.0); Mean Corpuscular Volume 91.4 fL (78.0-98.0); Mean Platelet Volume 8.3 fL (7.4-10.4); Platelet Count 210 thou/uL (130-400); RBC Distribution Width 11.6 % (11.5-14.5); Red Blood Cell (RBC) Count 4.42 mill/uL (4.70-6.10)
[2020-06-05 04:50] LABS: Anion Gap 14 mmol/L (10-20); BUN (Urea Nitrogen) 8 mg/dL (8.9-20.6); Calc. Creatinine Clearance 223 mL/min (70-130); Calcium 8.3 mg/dL (7.8-10.44); Carbon Dioxide 21 mmol/L (22-29); Chloride 105 mmol/L (98-107); Glucose 120 mg/dL (70-105); Potassium 3.2 mmol/L (3.5-5.1); Sodium 137 mmol/L (136-145)
[2020-06-05] MEDS: HYDROcodone/Acetaminophen 10/325 mg Tablet PO PRN (05:57)
[2020-06-05] MEDS ORDERED: Magnesium 2 GM/50 ML 2 GM in Premix Bag 1 BAG IVPB SCH (06:15)
--- NOTE | 2020-06-05 06:25 | PDOC.FM ---
- Subjective Subjective: Complaining of severe, radiating back pain this morning. Consistent with chronic back pain that he experiences. - Objective MAR Reviewed: Yes Vital Signs & Weight: Vital Signs (12 hours) Pulse Ox 06/04/20 19:53 98 Weight Weight 106.6 kg Most Recent Monitor Data Heart Rate from ECG 102 NIBP 130/78 NIBP BP-Mean 95 Respiration from ECG 14 SpO2 98 I&O: 06/03/20 06/04/20 06/05/20 06:59 06:59 06:59 Intake Total 1784.3 3900 Output Total 2050 4600 Balance -265.7 -700 Result Diagrams: 06/05/20 04:12 06/05/20 04:12 Phys Exam - Physical Examination Constitutional: NAD HEENT: PERRLA, moist MMs Neck: no nodes, no JVD, supple Respiratory: no wheezing, no rales, no rhonchi, clear to auscultation bilateral Cardiovascular: RRR, no significant murmur, no rub Gastrointestinal: soft, non-tender, no distention Musculoskeletal: no edema, pulses present Neurological: non-focal, moves all 4 limbs Psychiatric: normal affect, A&O x 3 Skin: no rash, normal turgor Dx/Plan (1) SVETLANA (acute kidney injury) Code(s): N17.9 - ACUTE KIDNEY FAILURE, UNSPECIFIED Status: Acute (2) Bulging disc Code(s): [id number] - Status: Acute (3) DJD (degenerative joint disease) Code(s): M19.90 - UNSPECIFIED OSTEOARTHRITIS, UNSPECIFIED SITE Status: Acute (4) DKA (diabetic ketoacidoses) Code(s): E11.10 - TYPE 2 DIABETES MELLITUS WITH KETOACIDOSIS WITHOUT COMA Status: Acute (5) Diabetes mellitus Code(s): E11.9 - TYPE 2 DIABETES MELLITUS WITHOUT COMPLICATIONS Status: Acute (6) HLD (hyperlipidemia) Code(s): E78.5 - HYPERLIPIDEMIA, UNSPECIFIED Status: Acute (7) HTN (hypertension) Code(s): I10 - ESSENTIAL (PRIMARY) HYPERTENSION Status: Acute (8) Sepsis Code(s): A41.9 - SEPSIS, UNSPECIFIED ORGANISM Status: Acute - Plan Plan: Pt is a 45 yo M with pmh of DMII, HTN, HLD, DJD, and hx of bulging disc disease who presents for weakness. Sepsis w/o clear source, ruled out - He met severe sepsis criteria on admission. - Blood cultures NGTD. - WBC elevation may be due to oral steroid use prior to admission. - Discontinuing antibiotics today, will monitor. DMII Home Meds: Metformin, Empagliflozin, Semaglutide. - Continue insulin for glucose control. Will consider discharging with insulin rather than oral -ACHS insulin checks, SSI HTN Home Meds: Olmesartan HLD Home Meds: Simvastatin DJD -MD aware Hx of Bulging Disc - Home Meds: Gabapentin, Nortriptyline Concern for Paget's Disease MRI showed a spot on L iliac, which was reiterated on CT -Alk phos and calcium normal R Renal Mass - 10 mm exophytic lesion found on CT - repeat CT with and without shows that it is a cyst. - will need outpatient f/u DKA, resolved SVETLANA, Resolved Diet: CC DVT PPx: Lovenox GI PPx: Protonix Code Status: Full PCP: Dr. Shayy Edwards Endo: Dr. Gardner Sports Med: Dr. Darden Dispo: Admitted. Addendum - Attending - Attending Attestation Date/Time: 06/05/20 3730 I personally evaluated the patient and discussed the management with Dr. Elizabeth. I agree with the History, Examination, Assessment and Plan documented above with any addition or exceptions noted below. Patient overall stable, reports continued back pain. In evaluating his labs, he was never in DKA. He had lactic acidosis and hyperglycemia. Control blood sugars. CT shows renal cyst. We are stopping abx given negative cultures, will continue to monitor and hope to discharge tomorrow with outpatient follow up.
[2020-06-05] MEDS ORDERED: Potassium Chloride 20 MEQ TAB PO SCH (06:30)
--- NOTE | 2020-06-05 08:55 | CT ---
CT ABDOMEN AND PELVIS WITH AND WITHOUT IV CONTRAST 06/05/2020 CLINICAL INFORMATION: Renal mass. COMPARISON: 06/04/2020 Technique: Multiple contiguous axial CT images are obtained through the abdomen and pelvis with IV contrast. Cor onal reformatted images are provided. FINDINGS: Lower Chest: Minimal right and trace left pleural effusions are seen with minimal atelectasis right l ej base. Vessels: Minimal atherosclerotic plaque and calcifications in the infrarenal abdominal aorta. Abdomen: Portal vein:Patent Gallbladder: Evidence of cholelithiasis. Mild increased density material is seen in the gallbladder l umen probably due to vicarious excretion of contrast secondary to recent contrasted study one day earlier. Liver: Mild hepatic steatosis is again noted. Spleen: within normal limits. Pancreas: within normal limits. Adrenals: within normal limits. Kidneys: 1.2 cm exophytic increased density lesion is seen in the inferior pole right kidney also see n on prior study. No enhancement is seen on the postcontrast images and this likely represents a Bosniak type II hyperdense renal cyst. No enhancing renal lesion is seen. There is no hydronephrosis or renal calculus. No ureteral calculi are seen. Bowel: Loops of small bowel are normal in caliber. Small amount retained fecal material seen througho ut the colon. Appendix: The appendix is visualized and normal in caliber. Peritoneum: No ascites or free air; no fluid collection. Mesentery and Retroperitoneum: No enlarged mesenteric or retroperitoneal lymph nodes. Abdominal Wall: within normal limits. Pelvis: Reproductive Organs: No pelvic masses. Bladder: within normal limits. Bones: Mild degenerative changes in the lower thoracic spine. The sclerotic lesion involving the left iliac bone with mild cortical thickening and trabecular thickening and associated mild expansion of the left ilium is present. This lesion was previously described on prior study as well as a prior MRI of the pelvis on 05/22/2020. IMPRESSION: 1. Bosniak type II hyperdense renal cyst inferior pole right kidney. No enhancing renal mass is seen. 2. Minimal right and trace left pleural effusions with mild atelectasis right lung base. 3. Sclerotic lesion left iliac bone with differential considerations suggestive of Paget's disease or possibly fibro-osseous lesion such as focal fibrous dysplasia. Further recommendations were made on MRI pelvis, and please see that exam for further details and recommendations. 4. Hepatic steatosis.
[2020-06-05] MEDS: Aspirin 81 mg Enteric Coated Tablet PO SCH (09:00)
[2020-06-05] MEDS: Losartan 25 MG TAB PO SCH (09:03)
[2020-06-05] MEDS: Gabapentin 300 MG CAP PO SCH ×3 (09:03→20:14)
[2020-06-05] MEDS: Lidocaine 5% Patch TD SCH (09:05)
[2020-06-05] MEDS: Insulin Glargine 15 UNITS in Pre-Filled Syringe 1 EACH SC SCH (09:16)
[2020-06-05] MEDS ORDERED: HYDROcodone/Acetaminophen 5/325 mg Tablet PO PRN (09:51)
--- NOTE | 2020-06-05 10:09 | PRG ---
DATE OF SERVICE: 06/05/2020 SUBJECTIVE: Eric Newman was transferred out of the ICU yesterday, uncontrolled diabetes and DKA. He is doing much better. OBJECTIVE: VITAL SIGNS: Temperature 98, pulse 101, respirations 20, saturations are 90% on room air, and blood pressure 130/79. CHEST: No wheezing. No crackles. CARDIAC: Normal S1 and S2. No gallops. ABDOMEN: No masses. LABORATORY DATA: His anion gap is resolved. His bicarb is 21. ASSESSMENT: Diabetic ketoacidosis, improved. PLAN: Pulmonary vásquez, continue present treatment. Diabetic counseling. Pulmonary will follow at a distance. Call if needed. Job ID: [id number]
[2020-06-05 10:15] LABS: Vancomycin, Trough 5.2 ug/mL
[2020-06-05] MEDS: Polyethylene Glycol 3350 17 GM Packet PO SCH (10:21)
[2020-06-05] MEDS ORDERED: Iopamidol-370 76% 500 ML 1 ML ONE (10:25)
[2020-06-05 10:26] LABS: Phosphorus 2.1 mg/dL (2.3-4.7)
[2020-06-05] MEDS ORDERED: traMADol HCl 50 MG TAB PO PRN (10:30)
[2020-06-05] MEDS: HYDROcodone/Acetaminophen 10/325 mg Tablet PO SCH ×2 (12:32→17:40)
[2020-06-05] MEDS: Atorvastatin Calcium 20 MG TAB PO SCH (20:14)
[2020-06-05] MEDS: Enoxaparin Sodium 40 MG/0.4 ML SYRINGE SC SCH (20:15)
[2020-06-05] MEDS: Transdermal Patch Removal TOP SCH (21:46)
[2020-06-06] MEDS: HYDROcodone/Acetaminophen 10/325 mg Tablet PO SCH ×3 (00:54→12:06)
[2020-06-06 04:41] LABS: #Basophils 0.1 thou/uL (0.0-0.2); #Monocytes 0.7 thou/uL (0.11-0.59); #Neutrophils 3.2 thou/uL (1.40-6.50); %Basophils 1.2 % (0.0-1.0); %Eosinophils 0.7 % (0.0-10.0); %Lymphocytes 33.4 % (21.0-51.0); %Neutrophils 52.7 % (42.0-75.0); Hemoglobin 13.8 g/dL (14.0-18.0); Mean Corpuscular HGB CONC 35.1 g/dL (32.0-36.0); Mean Corpuscular Hemoglobin 32.2 pg (27.0-31.0); Mean Corpuscular Volume 91.7 fL (78.0-98.0); Mean Platelet Volume 8.3 fL (7.4-10.4); Platelet Count 219 thou/uL (130-400); RBC Distribution Width 11.6 % (11.5-14.5); Red Blood Cell (RBC) Count 4.29 mill/uL (4.70-6.10); White Blood Cell (WBC) Count 6.1 thou/uL (4.8-10.8)
[2020-06-06 05:06] LABS: Anion Gap 13 mmol/L (10-20); BUN (Urea Nitrogen) 6 mg/dL (8.9-20.6); Calc. Creatinine Clearance 275 mL/min (70-130); Calcium 8.5 mg/dL (7.8-10.44); Carbon Dioxide 27 mmol/L (22-29); Chloride 102 mmol/L (98-107); Glucose 114 mg/dL (70-105); Sodium 139 mmol/L (136-145)
[2020-06-06 05:09] LABS: Potassium 2.8 mmol/L (3.5-5.1)
--- NOTE | 2020-06-06 06:22 | PDOC.FM ---
- Subjective Subjective: Doing well this morning. Back pain is stable. Discussed at length d/c planning and medications. - Objective MAR Reviewed: Yes Vital Signs & Weight: Vital Signs (12 hours) Temp Pulse Resp BP Pulse Ox 06/06/20 04:25 98 F 97 16 120/80 97 06/05/20 20:13 98.9 F 94 18 133/84 97 Weight Weight 106.231 kg Most Recent Monitor Data Heart Rate from ECG 102 NIBP 130/78 NIBP BP-Mean 95 Respiration from ECG 14 SpO2 98 I&O: 06/04/20 06/05/20 06/06/20 06:59 06:59 06:59 Intake Total 1784.3 4370 1400 Output Total 2050 4600 5900 Balance -265.7 -230 -4500 Result Diagrams: 06/06/20 04:11 06/06/20 04:11 Phys Exam - Physical Examination Constitutional: NAD HEENT: PERRLA, moist MMs Neck: no nodes, no JVD, supple Respiratory: no wheezing, no rales, no rhonchi, clear to auscultation bilateral Cardiovascular: RRR, no significant murmur Gastrointestinal: soft, non-tender Musculoskeletal: no edema, pulses present Neurological: non-focal, normal sensation Psychiatric: normal affect, A&O x 3 Skin: no rash, normal turgor Dx/Plan (1) SVETLANA (acute kidney injury) Code(s): N17.9 - ACUTE KIDNEY FAILURE, UNSPECIFIED Status: Acute (2) Bulging disc Code(s): [id number] - Status: Acute (3) DJD (degenerative joint disease) Code(s): M19.90 - UNSPECIFIED OSTEOARTHRITIS, UNSPECIFIED SITE Status: Acute (4) DKA (diabetic ketoacidoses) Code(s): E11.10 - TYPE 2 DIABETES MELLITUS WITH KETOACIDOSIS WITHOUT COMA Status: Acute (5) Diabetes mellitus Code(s): E11.9 - TYPE 2 DIABETES MELLITUS WITHOUT COMPLICATIONS Status: Acute (6) HLD (hyperlipidemia) Code(s): E78.5 - HYPERLIPIDEMIA, UNSPECIFIED Status: Acute (7) HTN (hypertension) Code(s): I10 - ESSENTIAL (PRIMARY) HYPERTENSION Status: Acute (8) Sepsis Code(s): A41.9 - SEPSIS, UNSPECIFIED ORGANISM Status: Acute - Plan Plan: Pt is a 45 yo M with pmh of DMII, HTN, HLD, DJD, and hx of bulging disc disease who presents for weakness. Sepsis w/o clear source, ruled out - He met severe sepsis criteria on admission. - Blood cultures show no growth @ 48 hours. - WBC elevation may be due to oral steroid use prior to admission. - Discontinued antibiotics yesterday, afebrile overnight. Will plan for dispo today with outpatient follow up. DMII Home Meds: Metformin, Empagliflozin, Semaglutide. - Continue insulin for glucose control. Patient is agreeable to d/c with insulin and metformin. 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 HTN Home Meds: Olmesartan HLD Home Meds: Simvastatin DJD -MD aware Hx of Bulging Disc - Home Meds: Gabapentin, Nortriptyline Concern for Paget's Disease MRI showed a spot on L iliac, which was reiterated on CT -Alk phos and calcium normal R Renal Mass - 10 mm exophytic lesion found on CT - repeat CT with and without contrast shows that it is a cyst. - will need outpatient f/u DKA, resolved SVETLANA, Resolved Diet: CC DVT PPx: Lovenox GI PPx: Protonix Code Status: Full PCP: Dr. Shayy Edwards Endo: Dr. Gardner Sports Med: Dr. Darden Dispo: Admitted. Addendum - Attending - Attending Attestation Date/Time: 06/06/20 1039 I personally evaluated the patient and discussed the management with Dr. Elizabeth. I agree with the History, Examination, Assessment and Plan documented above with any addition or exceptions noted below. Patient doing well. Blood sugars stable on current regimen, tolerating diet well. Needs K repletion and recheck. No evidence of infection and stable off abx. Likely discharge later today to continue his workup outpatient.
[2020-06-06] MEDS: Potassium Chloride 20 MEQ in Premix Bag 1 BAG IVPB SCH ×2 (06:28→08:27)
[2020-06-06] MEDS ORDERED: Magnesium 2 GM/50 ML 2 GM in Premix Bag 1 BAG IVPB SCH (06:30)
[2020-06-06] MEDS ORDERED: Potassium Chloride 40 MEQ in Premix Bag 1 BAG IVPB SCH (06:30)
[2020-06-06 08:13] VITALS: TEMP 98.1
[2020-06-06] MEDS: Lidocaine 5% Patch TD SCH (08:14)
[2020-06-06] MEDS: Gabapentin 300 MG CAP PO SCH (08:14)
[2020-06-06] MEDS: Aspirin 81 mg Enteric Coated Tablet PO SCH (08:17)
[2020-06-06] MEDS: Losartan 25 MG TAB PO SCH (08:18)
[2020-06-06] MEDS: Polyethylene Glycol 3350 17 GM Packet PO SCH (08:18)
[2020-06-06] MEDS: Insulin Glargine 15 UNITS in Pre-Filled Syringe 1 EACH SC SCH (08:25)
[2020-06-06] MEDS ORDERED: Potassium Chloride 20 MEQ TAB PO SCH (08:30)
[2020-06-06 12:11] VITALS: BP 137/85
[2020-06-06 12:46] LABS: Anion Gap 16 mmol/L (10-20); BUN (Urea Nitrogen) 6 mg/dL (8.9-20.6); Calc. Creatinine Clearance 250 mL/min (70-130); Calcium 8.5 mg/dL (7.8-10.44); Carbon Dioxide 25 mmol/L (22-29); Chloride 101 mmol/L (98-107); Glucose 177 mg/dL (70-105); Potassium 3.9 mmol/L (3.5-5.1); Sodium 138 mmol/L (136-145)
== END 2020-06-06 14:08 | disposition home or self-care (01) | DRG 683 ==
LOC: ERS 17:41 → ERHOLD 20:39 → CCU 23:42 → 2NO 06-04 20:05
PROVIDERS: ADMIT Internal Medicine; ATTEND Internal Medicine
DX: N17.9 Acute kidney failure, unspecified (principal); E87.1 Hypo-osmolality and hyponatremia; E87.2 Acidosis; N28.89 Other specified disorders of kidney and ureter; E78.00 Pure hypercholesterolemia, unspecified; G89.4 Chronic pain syndrome; M19.90 Unspecified osteoarthritis, unspecified site; M88.9 Osteitis deformans of unspecified bone; Z20.822 Contact with and (suspected) exposure to COVID-19; E78.5 Hyperlipidemia, unspecified; Z87.891 Personal history of nicotine dependence; Z88.8 Allergy status to other drugs, medicaments and biological substances; Z79.899 Other long term (current) drug therapy; Z79.84 Long term (current) use of oral hypoglycemic drugs; Z79.82 Long term (current) use of aspirin; Z79.1 Long term (current) use of non-steroidal anti-inflammatories (NSAID); Z79.891 Long term (current) use of opiate analgesic; E86.0 Dehydration
CPT/HCPCS: 0240U; 36415; 36416; 71045; 74177; 74178; 80048; 80053; 80202; 81003; 81015; 82010; 82306; 82805; 83605; 83735; 84100; 84145; 84484; 85025; 87040; 87077; 87086; 87635; 93005; 96365; 96366; 96368; 96375; J1650; J1815; J1885; J2270; J2405; J2543; J3370; J3475; J3480; J3490; Q9967; U0003; U0005

== ENCOUNTER 2020-06-14 10:04 | Outpatient (CLI) | payer OTHER ==
--- NOTE | 2020-06-14 15:28 | NM ---
Whole body bone scan: 06/14/2020 COMPARISON: None HISTORY: Sclerotic lesion seen on prior imaging involving the left iliac bone TECHNIQUE: Whole body bone scan performed following the intravenous administration of 29.7 mCi techne tium 99m labeled MDP FINDINGS: Physiologic activity in the region of the kidneys and urinary bladder obtained. There is increased radiotracer activity in the region of the left knee, particularly anteriorly at th e level of the proximal left tibia. There is also vague increased radiotracer activity overlying the mid shaft of the left tibia. This could be related to prior trauma or surgery. Correlation with r adiographs advised as clinically warranted. There is no abnormal radiotracer activity overlying the ribs, the spine, or the calvarium. No focal a loc of abnormal radiotracer activity is seen in the region of the pelvis on either side. This includes tail on detector views. The study was reviewed in consultation with Dr. Samson FINDINGS: No abnormal radiotracer activity is seen overlying the pelvis. There is increased radiotrac er activity involving the left knee/mid shaft left tibia. Please see above discussion.
== END 2020-06-14 10:05 | disposition home or self-care (01) ==
LOC: NM 10:04
PROVIDERS: ATTEND Family Medicine
DX: M88.9 Osteitis deformans of unspecified bone (principal)
CPT/HCPCS: 78306; A9503